=== PATIENT | female | born 1985 | race Caucasian/White ===

== ENCOUNTER → 2020-03-22 | Outpatient (CLI) | payer OTHER ==
--- NOTE | 2020-03-22 11:38 | KCIC ---
CERVICAL SPINE WO CONTRAST, THORACIC SPINE WO CONTRAST DATE: 03/22/2020 10:15 AM INDICATION: CERVICAL RADICULOPATHY. Progressing left sided neck pain and pain into right shoulder. NKI. Thoracic neuritis. TECHNIQUE: Multiplanar multisequence magnetic resonance imaging of the cervical spine was performed without administration of intravenous contrast using the standard cervical spine protocol. COMPARISON: None. FINDINGS: The cervical and thoracic spine are normally aligned. No acute fracture. The intervertebral discs are normal. Scattered vertebral body hemangiomas. The spinal cord is normal in signal intensity. Conus terminates at a normal level. On the limited views of the cranial cavity and brain, the cerebellum and tim have normal morphology and signal characteristics. No Chiari malformation. No soft tissue abnormality. Normal signal voids are present in the vertebral arteries. Partially visualized intrathoracic structures are unremarkable. Cervical: No significant spinal canal stenosis or neural foraminal narrowing. Thoracic: No significant spinal canal stenosis or neural foraminal narrowing. IMPRESSION: No significant cervical or thoracic spinal canal stenosis or neural foraminal narrowing. Electronically signed by: Tray Mendez MD (03/22/2020 11:36 AM) [id number]
== END | disposition home or self-care (01) ==
LOC: KCIC MRI 09:12
PROVIDERS: ATTEND Physician Assistant
DX: M54.13 Radiculopathy, cervicothoracic region (principal)
CPT/HCPCS: 72141; 72146

== ENCOUNTER → 2020-12-20 | Outpatient (CLI) | payer OTHER ==
--- NOTE | 2020-12-20 16:02 | KCIC ---
EXAMINATION: MRI LEFT KNEE WITHOUT IV CONTRAST CLINICAL HISTORY: OSTEOCHONDRAL DEFECT OF FEMORAL CONDYLE. Anterior knee pain since bending down Feb 2019. TECHNIQUE: Multiplanar multisequential images obtained through the knee without intravenous contrast. COMPARISON: None FINDINGS: MENISCI: Medial Meniscus: Intact. Lateral Meniscus: Intact. LIGAMENTS: ACL: Intact with mild mucoid degeneration PCL: Intact MCL: Intact LCL Complex: Intact CARTILAGE: Medial Femoral Condyle: Small areas(s) of predominantly high grade (greater than 50% thickness) carti la loss and or fissuring with smaller area(s) of full thickness cartilage loss and or fissuring in the posterior weightbearing portion of the condyle Medial Tibial Plateau: Normal Lateral Femoral Condyle: Normal Lateral Tibial Plateau: Normal Patella: Normal Trochlea: Normal TENDONS: Distal quadriceps and patellar tendons intact. Popliteus tendon intact. BONES AND MARROW: No evidence of acute fracture or suspicious marrow replacing process. MUSCLES: Muscle bulk and signal intensity within normal limits. JOINT FLUID AND SYNOVIUM: No joint effusion. No synovitis. No Leiva's cyst. IMPRESSION: Small area of full-thickness chondral wear in the medial femoral condyle. No osteochondral defect. Mild ACL mucoid degeneration. Electronically signed by: Ovidio Healy DO (12/20/2020 4:00 PM) [id number]
== END ==
LOC: KCIC MRI 10:49
PROVIDERS: ATTEND Physician Assistant
DX: M95.8 Other specified acquired deformities of musculoskeletal system (principal)
CPT/HCPCS: 73721